=== PATIENT | female | born 1970 | race Caucasian/White ===

== ENCOUNTER 2017-07-27 01:35 | Emergency (ER) | payer OTHER ==
[~2017-07-27] VITALS: Ht 165.1 cm; Wt 154.6 kg
[~2017-07-27 01:35] MED LIST: HYDR1TAB69 PO; OMPR20CCR PO; ONDA4TAB48 PO; birthcontrol PO; citalopram PO
[2017-07-27 01:41] VITALS: BP 157/104; PULSE 74; RESP 24; O2SAT 95
--- NOTE | 2017-07-27 02:17 | ED.REPORT ---
HPI-General Illness Date of Service Jul 27, 2017 ED Provider: Dr. Campbell Pt is a 47 year old female with a hx of hyperlipemia and depression presenting to the ED complaining of dyspnea on exertion onset after starting Atorvastatin. Associated symptoms include ankle swelling and constant back pain both onset since taking Atorvastatin. Denies chest pain, fever, chills, nausea, or vomiting. She had a negative cardiac workup including a stress test following a ED visit for chest pain in October 2016. Nursing Notes Stated Complaint: LEFT SIDE PAIN WITH SWELLING,LOWER BACK AND DOWN Chief Complaint: General Complaint Nursing Notes Reviewed: Yes Allergies: Coded Allergies: Penicillins (Verified Allergy, Severe, Rash, 07/27/17) latex (Verified Allergy, Severe, Rash,Itching,, 07/27/17) Scheduled ([citalopram]) TAB 60 MG PO DAILY ([birthcontrol]) 1 TAB PO DAILY Furosemide (Lasix) 20 Mg Tablet 20 MG PO DAILY Hydrocod/APAP-Expunged, Do Not Renew! (VICODIN-Expunged Drug, Do Not Renew) 1 Tab Tab 1 TAB PO Q 4-6HRS PRN Omeprazole-Expunged Drug, Do Not Renew! (Omeprazole-Expunged Drug, Do Not Renew! ) 20 Mg Capsule.dr 20 MG PO DAILY Ondansetron (Zofran) 4 Mg Tab.rapdis 4 MG PO PRN General Time Seen by MD: 02:17 Chief Complaint Breathing problem Hx Obtained From: Patient Arrived By: Walk-in Sudden in Onset?: No Onset Occurred: Onset unknown Symptom Duration: Since onset Location: : Back Quality: Painful Severity: Current: Moderate Severity: Maximum: Moderate Recent Healthcare: No recent doctor visit, No recent hospitalization Similar Sx Previous: Yes Past Medical History Past Medical History depression hyperlipidemia Past Surgical History Reports: Cholecystectomy Smoking History Unknown if Ever Smoker Ambulatory Status Independent Review of Systems Full Review of Systems Constitutional: Denies: Chills, Fever Respiratory: Reports: Dyspnea on exertion GI: Denies: Nausea, Vomiting Musculoskeletal: Reports: Back pain, Extremity swelling Complete sys rev & neg: except as marked. Physical Exam Vital Signs Vital Signs Date Time Temp Pulse Resp B/P Pulse Ox O2 Delivery O2 Flow Rate FiO2 07/27/17 07:04 36.6 75 18 133/71 96 Room Air 07/27/17 01:41 36.7 74 24 157/104 95 Room Air Initial VS: Reviewed General/Constitutional: Well-developed, Well-nourished Head / Eyes: Atraumatic, Normocephalic, PERRL ENT: Mucous membranes moist, Conjunctiva normal, No scleral icterus Neck: Supple, Non-tender, Full range of motion Respiratory: Breath sounds normal, Clear to auscultation, No respiratory distress Cardiovascular: Regular rate & rhythm, Heart sounds normal, Intact distal pulses Abdomen / GI: Soft, Non-tender, No guarding, No rebound, No distention Skin: Warm, Dry, No cyanosis Neurologic: Alert, Oriented, Nonfocal Psychiatric: Mood/affect normal, Behavior normal, Normal thought content Lower Extremity / Pelvis / MS: Atraumatic, No deformity, Neurologic intact, Vascular intact Bilateral 2+ edema Interpretation & Diagnostics Lab Results Interpretation Result Diagram: 07/27/17 0340 07/27/17 0340 Test 07/27/17 03:40 White Blood Count 7.7th/mm3 (3.8-10.1) Red Blood Count 4.69mil/mm3 (3.90-5.20) Hemoglobin 12.5g/dL (12.0-15.6) Hematocrit 38.5% (35.0-46.0) Mean Corpuscular Volume 82.1fL (81-100) Mean Corpuscular Hemoglobin 26.7pg (27.0-35.0) Mean Corpuscular Hemoglobin Concent 32.5% (32.0-37.0) Red Cell Distribution Width 15.7% (12.3-15.4) Platelet Count 309bil/L (150-400) Neutrophils (%) (Auto) 64.8% (40-74) Lymphocytes (%) (Auto) 26.2% (14-46) Monocytes (%) (Auto) 5.4% (4-12) Eosinophils (%) (Auto) 3.0% (0-5) Basophils (%) (Auto) 0.3% (0-3) Prothrombin Time 9.6sec (8.1-12.5) Prothromb Time International Ratio 0.90ratio Activated Partial Thromboplast Time 21.7sec (22.8-33.0) D-Dimer 0.68mg/L FEU (<0.50) Sodium Level 137mEq/L (134-144) Potassium Level 3.6mEq/L (3.5-5.2) Chloride Level 98mEq/L (97-108) Carbon Dioxide Level 24mmol/L (18-29) Blood Urea Nitrogen 11mg/dL (6-24) Creatinine 0.57mg/dL (0.57-1.00) Estimat Glomerular Filtration Rate 164mL/min (>59) Glucose Level 157mg/dL (60-99) Calcium Level 9.3mg/dL (8.5-10.1) Magnesium Level 1.7mg/dL (1.6-2.6) Total Bilirubin 0.4mg/dL (0.0-1.2) Aspartate Amino Transf (AST/SGOT) 16U/L (0-50) Alanine Aminotransferase (ALT/SGPT) 21U/L (0-32) Alkaline Phosphatase 76U/L (25-150) Troponin T < 0.010ug/L (0.0-0.011) Pro-B-Type Natriuretic Peptide 101.0pg/mL (0-249) Total Protein 7.2g/dL (6.4-8.4) Albumin 3.7g/dL (3.4-5.0) Hold Vela Top Tube Received (Received) ECG Interpretation ECG Interpretation: Sinus rhythm rate 74 Time: 02:18 Interpreted by: ED physician X-Ray Chest Interpretation Chest Xray Interpretation: No acute. View: Portable, 1 view Interpretation / Wet Read by: Wet read ED physician CT Chest Interpretation CT PULM ANG: CONCLUSION: No CT evidence of pulmonary emboli. No acute intrathoracic pathology. This report was transmitted to the emergency room at 07/27/2017 - 6:22:41 AM PDT. Study type: CT pulm angiogram Interpretation / Wet Read by: Interpret - Radiologist Re-Eval/Medical Decision Med Decision/Clinical Course 47-year-old presents with edema that she associates with the use of statins for the past 3-4 months. She was initially on atorvastatin and now on pravastatin. She has some breathlessness associated no other findings. No rales on exam, x-rays unremarkable, and be naturally peptide is negative. D-dimer is elevated per scan is negative for clot. Provided with Lasix 4 AM use for the next few days and discharged in stable condition for follow-up with PCP. No evidence of pulmonary embolus or other serious pathology. Time of Eval: 04:46 Patient Status: Condition improved Re-Evaluation/Progress Note: Discussed lab and CT results. Counseled Regarding: Diagnosis, Lab results, Need for follow-up, When/why to return to ED Discharge & Departure Primary Impression: Edema Edema type: unspecified Qualified Code: R60.9 - Edema, unspecified Disposition: Home Discharge Condition All VS Reviewed: Yes Condition: Stable Patient Instructions: Leg Edema (ED) Additional Instructions: We find no evidence of pulmonary embolus no evidence of congestive heart failure no other significant or dangerous pathology. If, as you believe, your swelling is coming from your statin, he must stop here statin and should resolve. You may use Lasix each morning for the next three or four mornings to diurese off some fluid. Follow-up with your doctor in the office this week. Return if any immediate issues. Referrals: Konstantin Linares MD (PCP) Shirley Simpson Attestation Portions of this note were transcribed by Crista Booth and Karlos Bobo. I, Dr. Campbell personally performed the history, physical exam and medical decision -making; I reviewed and confirmed the accuracy of the information in the transcribed note. Signed by: Sarah Davidson, 07/27/2017 copies to: Shirley Simpson; Konstantin Linares MD, Christopher W MD Jul 27, 2017 02:17 CRISTA BOOTH Jul 27, 2017 02:36 Jul 27, 2017 03:00
[2017-07-27 03:46] LABS: BASOPHILS % (AUTO) 0.3 % (0-3); MONOCYTES % (AUTO) 5.4 % (4-12); Mean Corpuscular Hemoglobin 26.7 pg (27.0-35.0); Mean Corpuscular Volume 82.1 fL (81-100); NEUTROPHILS % (AUTO) 64.8 % (40-74); Platelet Count 309 bil/L (150-400)
[2017-07-27 04:12] LABS: TROPONIN T < 0.010 ug/L (0.0-0.011)
[2017-07-27 04:16] LABS: D-Dimer 0.68 mg/L FEU (<0.50); INR 0.9 ratio
[2017-07-27 04:23] LABS: Magnesium 1.7 mg/dL (1.6-2.6)
[2017-07-27] MEDS ORDERED: FURO-129 PO (06:36)
[2017-07-27 07:04] VITALS: BP 133/71; PULSE 75; RESP 18; O2SAT 96
--- NOTE | 2017-07-27 09:43 | DRSVH ---
PROCEDURE: X-RAY CHEST ONE VIEW, PORTABLE ([id number]) INDICATIONS: edema TECHNIQUE: One view of the chest was acquired. COMPARISON: [facility], CT, CT ANGIO CHEST PE, 07/27/2017, 5:57. [facility], CT, CHEST ANGIO-PE, 04/13/2011, 20:40. [facility], CR, CHEST 2VW, 04/13/2011, 19:14. FINDINGS: Surgical changes and devices: None. Lungs and pleura: No pleural effusions or pneumothorax. Lungs are clear. Mediastinum: Mediastinal contours appear normal. Heart size is normal. Bones and chest wall: No suspicious bony lesions. Overlying soft tissues appear unremarkable. IMPRESSION: No acute cardiopulmonary disease. Dictated by: Juan HESTER Interpreted: Gloria Mahan MD on 07/27/2017 at 8:57 Approved by: Gloria Mahan M.D. on 07/27/2017 at 9:41
--- NOTE | 2017-07-27 10:25 | DRSVH ---
PROCEDURE: CT ANGIO CHEST PULMONARY EMBOLISM ([id number]) INDICATIONS: edema, elevTED DIMER TECHNIQUE: After the administration of intravenous contrast, 2 mm thick sections acquired from the pulmonary api kelly to the posterior costophrenic angles. 3-dimensional maximum intensity projection (MIP) coronal a nd sagittal reformats were then acquired through the thorax. For radiation dose reduction, the follo wing was used: automated exposure control, adjustment of mA and/or kV according to patient size. 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 Pulmonary arteries: Pulmonary arteries are normal in size, and demonstrate no intraluminal filling d efects to suggest central pulmonary embolism. Lungs and pleura: Lungs are clear. No pleural effusions or pneumothorax. Central and peripheral ai rways are patent. Mediastinum: Heart size is normal, without pericardial effusion. No mediastinal or hilar adenopathy . Thoracic aorta is normal in caliber and enhancement. Esophagus is normal in caliber, without hiat al hernia. Bones and chest wall: No suspicious bony lesions. Ribs and thoracic spine appear intact throughout. Thyroid gland is partially visualized. No axillary or supraclavicular adenopathy. Abdomen: Visualized upper abdominal solid organs appear normal in the early arterial phase of enhanc ement. Gallbladder is surgically absent. IMPRESSION: 1. Exam is negative for pulmonary embolic disease. 2. No acute cardiopulmonary abnormality identified. 3. Status post cholecystectomy. Findings are concordant with the preliminary report. Dictated by: Kimani Tripp M.D. on 07/27/2017 at 10:20 Approved by: Kimani Tripp M.D. on 07/27/2017 at 10:24
== END 2017-07-27 07:11 | disposition home or self-care (01) ==
LOC: SED 01:35
DX: R60.0 Localized edema (principal); E78.5 Hyperlipidemia, unspecified; Z88.0 Allergy status to penicillin; Z91.040 Latex allergy status
CPT/HCPCS: 36415; 71010; 71275; 80053; 83735; 83880; 84484; 85025; 85378; 85610; 85730; 93005; 99285; Q9967